=== PATIENT | male | born 1990 | race Two or more races ===

== ENCOUNTER 2016-08-05 18:42 | Emergency (ER) | payer OTHER ==
[~2016-08-05] VITALS: Ht 180.3 cm; Wt 136.1 kg
[2016-08-05 18:49] VITALS: BP 146/86
[2016-08-05] MEDS ORDERED: diphenhdrAMINE HCL 25 MG CAP PO ONE (22:15)
[2016-08-05] MEDS ORDERED: predniSONE 20 MG TAB PO ONE (22:15)
== END 2016-08-05 22:39 | disposition home or self-care (01) ==
LOC: ER 18:48
DX: T78.40XA Allergy, unspecified, initial encounter (principal)
CPT/HCPCS: 99283; J7512